=== PATIENT | female | born 1980 | race Caucasian/White ===

== ENCOUNTER → 2023-04-30 01:15 | Outpatient (CLI) | payer OTHER, SELFPAY ==
--- OUTSIDE RECORDS SUMMARY | 2023-04-26 13:03 | XMS_ITS | Continuity of Care Document ---
Author Name Unknown Organization [facility] Ambulatory Clinics Address [address] [place] [address] Care Team Providers Care Inseamer Name Role Phone Page Pat KATZ Primary Care Physician Encounter [facility] NBR [id number] Date(s): 04/02/23 - 04/02/23 [facility] [address] [place] [address]- [place] Discharge Disposition: Home Allergies, Adverse Reactions, Alerts Substance Reaction Severity Status penicillin internal itch Severe Active morphine chest pain/SOB Severe Active sulfa drugs GI Moderate Active Zofran Anaphylactic reaction Severe Active Toradol abd pain Moderate Active Latex itchy rash Moderate Active Assessment and Plan Future Scheduled Tests Radiology* MRI Brain w/o Contrast 01/30/23 Immunizations Given and Recorded Vaccine Date Status Refusal Reason influenza virus vaccine, inactivated 1 05/31/20 Re corded pneumococcal 23-polyvalent vaccine 2 01/13/18 Vicente rded 1Result Comment: Unit: Unknown Setup Operator: Sanofi Pasteur 2Result Comment: Unit: Unknown Medications CeleBREX 200 mg oral capsule 200 mg = 1 cap, Oral, Daily, 0 Refill(s) Start Date: 06/15/22 Status: Ordered colestipol 1 g oral tablet 180 tab, 0 Refill(s) Start Date: 06/15/22 Status: Ordered cyanocobalamin 3000 mcg/mL sublingual liquid 0 Refill(s) Start Date: 06/15/22 Status: Ordered Cytomel 5 mcg oral tablet 5 mcg = 1 tab, Oral, Daily, # 30 tab, 0 Refill(s) Start Date: 06/02/22 Status: Ordered FeroSul 325 mg (65 mg elemental iron) oral tablet 1 Unknown, 0 Refill(s) Start Date: 06/15/22 Status: Ordered Imodium A-D 0 Refill(s) Start Date: 06/15/22 Status: Ordered Plaquenil 200 mg oral tablet 200 mg = 1 tab, Oral, BID, 0 Refill(s) Start Date: 06/15/22 Status: Ordered Multivitamins 0 Refill(s) Start Date: 06/15/22 Status: Ordered Synthroid 175 mcg (0.175 mg) oral tablet 175 mcg = 1 tab, Oral, Daily, # 30 tab, 0 Refill(s) Start Date: 06/02/22 Status: Ordered Tylenol Extra Strength 500 mg oral tablet QID, 2 Unknown, 0 Refill(s) Start Date: 06/15/22 Status: Ordered Vitamin C 0 Refill(s) Start Date: 06/02/22 Status: Ordered Vitamin D3 5000 intl units oral tablet 0 Refill(s) Start Date: 06/15/22 Status: Ordered Voltaren 1% topical gel 0 Refill(s) Start Date: 06/15/22 Status: Ordered Wellbutrin XL 150 mg/24 hours oral tablet, extended release 150 mg = 1 tab, Oral, every 24 hr, 0 Refill(s) Start Date: 06/15/22 Status: Ordered Problem List Condition Confirmation Course Effective Dates Status H ealth Status Informant Memory loss Confirmed Active Anxiety Confirmed Active Asthma Confirmed Active Bursitis of left elbow Confirmed Active Cervical dysplasia, moderate 1 Confirmed Active Deficiency of vitamin B12 Confirmed Active Vitamin B 12 deficiency Confirmed Active Crohn's disease Confirmed Active Connective tissue disorder 2 Confirmed Active Diverticulitis Confirmed Active Cervical dysplasia Confirmed Active Dysuria Confirmed Active Endometriosis 3 Confirmed Active Infertility, female Confirmed Active Kristen's thyroiditis Confirmed Active H/O Crohn's disease Confirmed Active History of vulvodynia Confirmed Active Hypothyroidism Confirmed Active IgA deficiency Confirmed Active Anemia, iron deficiency Confirmed Active Renal calculus Confirmed Active Lupus Confirmed Active Migraine headache Confirmed Active Mittelschmerz Confirmed Active Polyarthralgia Confirmed Active Pulmonary nodule Confirmed Active Plantar fasciitis Confirmed Active Raynaud's disease Confirmed Active Recurrent UTI Confirmed Active Connective tissue disease, undifferentiated Confirmed Active Vertigo Confirmed Active 1Treated with LLETZ in 2002. 2Undifferentiated connective tissue disease. Diagnosed at [facility] [place]. LORI positive, ADA panel negative, intermittently elevated antidouble stranded DNA levels. 3Stage 2 Procedures Procedure Date Related Diagnosis Body Site Status Hysteroscopy 1 10/02/18 Completed Back surgery 03/2011 Completed Cholecystectomy 08/2008 Completed Back surgery 2 Completed Colonoscopy x2 Completed Laparoscopy x3 Completed LEEP (Loop electrosurgical e xcision procedure) of cervix x2 3 Comple chandu 1with D&C 2Fused 3for VICKY 2-3 (2002 and 2003) Social History Social History Type Response Tobacco Never tobacco user T obacco Use:. Sex Patient Care team information Care Team Personnel Name: Pat Grant APRN Position: Physician Member Role: Primary Care Physician Address: Address: [address] [place] [address]- Care Team Related Persons Name: DONNA CASTORENA Address: Home
--- OUTSIDE RECORDS SUMMARY | 2023-04-26 13:03 | XMS_ITS | Continuity of Care Document ---
Author Name Unknown Organization [facility] Address [address] [place] [id number] Care Team Providers Care Hardware Engineer Name Role Phone Page Pat KATZ Primary Care Physician Encounter [facility] NBR [id number] Date(s): 01/18/23 - 01/18/[address] [address]- [place] Discharge Disposition: Home or Self Care Attending Physician: Pat Grant APRN Admitting Physician: Pat Grant APRN Referring Physician: Pat Grant APRN Allergies, Adverse Reactions, Alerts Substance Reaction Severity Status penicillin internal itch Severe Active morphine chest pain/SOB Severe Active sulfa drugs GI Moderate Active Zofran Anaphylactic reaction Severe Active Toradol abd pain Moderate Active Latex itchy rash Moderate Active Assessment and Plan Future Appointments Future Scheduled Tests Radiology* MRI Brain w/o Contrast 01/30/23 Immunizations Given and Recorded Vaccine Date Status Refusal Reason influenza virus vaccine, inactivated 1 05/31/20 Re corded pneumococcal 23-polyvalent vaccine 2 01/13/18 Vicente rded 1Result Comment: Unit: Unknown Raker Buffing Wheel: Sanofi Pasteur 2Result Comment: Unit: Unknown Medications [...] 2002. 2Undifferentiated connective tissue disease. Diagnosed at [facility] [place]. LORI positive, ADA panel negative, intermittently [...] 2Fused 3for VICKY 2-3 (2002 and 2003) Results Laboratory List Name Date Thyroid Stimulating Hormone (Thyroid Sti mulating Hormone (TSH) (CPT-88748)) 01/18/23 Most recent to oldest [Reference Range]: 1 TSH [0.45-5.33 mIntlUnit/mL] 1.42 mIntlU nit/mL (01/18/23 11:29 AM) Social History Social History Type Response Tobacco Never tobacco user T obacco Use:. Sex Patient Care team information Care Team Personnel Name: Pat Grant APRN Position: Physician Member Role: Primary Care Physician Address: Address: [address] [place] [address] Care Team Related Persons Name: DONNA CASTORENA Address: Home
--- OUTSIDE RECORDS SUMMARY | 2023-04-26 13:04 | XMS_ITS | Continuity of Care Document ---
Author Name Unknown Organization [facility] Ambulatory Clinics Address [address] [place] [address] Encounter [facility] NBR [id number] Date(s): 06/02/22 - 06/02/22 [facility] Ambulatory [facility] [address] [place] [address] [place], [place] [address] Encounter Diagnosis Neck muscle spasm(Discharge Diagnosis) - 06/02/22 Headache(Discharge Diagnosis) - 06/02/22 Discharge Disposition: Home or Self Care Attending Physician: Tori Clarke PA-C Allergies, Adverse Reactions, Alerts Substance Reaction Severity Status penicillin Moderate Active Zofran Severe Active Toradol Severe Active Functional Status 06/02/22 Other exposure to Infectious Disease Non e Medications CeleBREX 100 mg oral capsule 100 mg = 1 cap, Oral, BID, # 180 cap, 0 Refill(s) Start Date: 06/02/22 Status: Ordered Cytomel 5 mcg oral tablet 5 mcg = 1 tab, Oral, Daily, # 30 tab, 0 Refill(s) Start Date: 06/02/22 Status: Ordered norethindrone 5 mg oral tablet 5 mg = 1 tab, Oral, Daily, # 30 tab, 0 Refill(s) Start Date: 06/02/22 Status: Ordered Plaquenil 200 mg oral tablet 0 Refill(s) Start Date: 06/02/22 Status: Ordered predniSONE 10 mg oral tablet 40 mg = 4 tab, Oral, Daily, Take with food, X 5 days, # 20 tab, 0 Refill(s), 06/07/22 13:27:00 EDT,Pharmacy: [id number] Start Date: 06/02/22 Stop Date: 06/07/22 Status: Ordered Synthroid 175 mcg (0.175 mg) oral tablet 175 mcg = 1 tab, Oral, Daily, # 30 tab, 0 Refill(s) Start Date: 06/02/22 Status: Ordered Vitamin C 0 Refill(s) Start Date: 06/02/22 Status: Ordered Wellbutrin SR 150 mg/12 hours oral tablet, extended release 150 mg = 1 tab, Oral, BID, # 180 tab, 0 Refill(s) Start Date: 06/02/22 Status: Ordered Results Laboratory List Name Date SARS-CoV-2 (COVID-19) Antigen (Binax) PO CT 06/02/22 Most recent to oldest [Reference Range]: 1 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 Yes *NA* (06/02/22 10:00 AM) SARS-CoV-2 (COVID-19) Ag (Binax) [Negati ve] Negative (06/02/22 10:00 AM) Vital Signs Most recent to oldest [Reference Range]: 1 Temperature Tympanic [36.6-37.9 Deg C] 3 7.4 Deg C (06/02/22 12:45 PM) Peripheral Pulse Rate [60-100 bpm] 73 bp m (06/02/22 12:45 PM) Blood Pressure [90-140/60-90 mmHg] 134/9 1mmHg (06/02/22 12:45 PM) Social History Social History Type Response Tobacco Never tobacco user T obacco Use:. Sex
--- OUTSIDE RECORDS SUMMARY | 2023-04-26 13:04 | XMS_ITS | Continuity of Care Document ---
Author Name Unknown Organization [facility] Ambulatory Clinics Address [address] [place] [address] Care Team Providers Care Plain Clothes Police Officer Name Role Phone Page Pat KATZ Primary Care Physician [phone] Encounter [facility] NBR [id number] Date(s): 04/18/23 - 04/18/23 [facility] Ambulatory Clin[facility] [address] [place] [address]- [place] Encounter Diagnosis Extensor tendonitis of foot(Discharge Diagnosis) - 04/18/23 Discharge Disposition: Home or Self Care Attending Physician: Gena Palafox PA-C Admitting Physician: Gena Palafox PA-C Allergies, Adverse Reactions, Alerts Substance Reaction [...] 01/13/18 Vicente rded 1Result Comment: Unit: Unknown Slip Cover Estimator: Sanofi Pasteur 2Result Comment: Unit: Unknown Medications [...] 2002. 2Undifferentiated connective tissue disease. [place] [facility] [place]. LORI positive, ADA panel negative, intermittently [...] 2Fused 3for VICKY 2-3 (2002 and 2003) Vital Signs Most recent to oldest [Reference Range]: 1 Temperature Tympanic [36.6-37.9 Deg C] 3 6.4 Deg C *LOW* (04/18/23 4:57 PM) Peripheral Pulse Rate [60-100 bpm] 70 bp m (04/18/23 4:57 PM) Respiratory Rate [12-24 br/min] 18 br/mi n (04/18/23 4:57 PM) Blood Pressure [90-140/60-90 mmHg] 141/9 4mmHg *HI* (04/18/23 4:57 PM) Weight 96 kg (04/18/23 4:57 PM) Weight Measured (lbs) 211.644 lb (04/18/23 4:57 PM) Height 177 cm (04/18/23 4:57 PM) Height/Length Measured (inches) 69.69 in ch (04/18/23 4:57 PM) BSA Measured 2.17 m2 (04/18/23 4:57 PM) Body Mass Index 30.64 kg/m2 (04/18/23 4:57 PM) Social History Social History Type Response Tobacco Never tobacco user T obacco Use:. Sex Hospital Discharge Instructions Patient Education 04/18/2023 16:13:06 Tendinitis, [id number] Tendinitis Tendinitis is irritation and swelling (inflammation) of a tendon. A tendon is a cord of tissue thatconnects muscle to bone. Tendinitis is most common in the shoulder, ankle, elbow, or wrist. What are the causes? Using a tendon or muscle too much (overuse). This is the most common cause. ??? Wear and tear that happens as you age. ??? Injury. ??? Some medical conditions, such as arthritis. ??? Some medicines. What increases the risk? You are more likely to get this condition if you do activities that involve the same movements overand over again (repetitive motions). What are the signs or symptoms? Pain. ??? Tenderness. ??? Mild swelling. ??? Decreased range of motion. How is this treated? This condition is usually treated with RICE therapy. RICE stands for: ??? Rest. ??? Ice. ??? Compression. This means putting pressure on the affected area. ??? Elevation. This means raising the affected area above the level of your heart. Treatment may also include: ??? Medicines for swelling or pain. ??? Exercises or physical therapy to help your tendon move better and get stronger. ??? A brace or splint. ??? A shot (injection) of a type of medicine called corticosteroid. ??? Surgery. This is rarely needed. Follow these instructions at home: If you have a splint or brace that can be taken off: ??? Wear the splint or brace as told by your doctor. Take it off only as told by your doctor. ??? Check the skin around the splint or brace every day. Tell your doctor if you see problems. ??? Loosen the splint or brace if your fingers or toes: ??? Tingle. ??? Become numb. ??? Turn cold and blue. ??? Keep the splint or brace clean. ??? If the splint or brace is not waterproof: ??? Do not let it get wet. ??? Cover it with a watertight covering when you take a bath or shower, or take it off as told by your doctor. Managing pain, stiffness, and swelling ??? If told, put ice on the affected area. To do this: ??? If you have a removable splint or brace, take it off as told by your doctor. ??? Put ice in a plastic bag. ??? Place a towel between your skin and the bag. ??? Leave the ice on for 20 minutes, 2???3 times a day. ??? Take off the ice if your skin turns bright red. This is very important. If you cannot feel pain, heat, or cold, you have a greater risk of damage to the area. ??? Move the fingers or toes of the affected arm or leg often, if this applies. ??? If told, raise the affected area above the level of your heart while you are sitting or lying down. ??? If told, put heat on the affected area before you exercise. Use the heat source that your doctor recommends, such as a moist heat pack or a heating pad. ??? Place a towel between your skin and the heat source. ??? Leave the heat on for 20???30 minutes. ??? Take off the heat if your skin turns bright red. This is very important. If you cannot feel pain, heat, or cold, you have a greater risk of getting burned. Activity ??? Rest the affected area as told by your doctor. ??? Ask your doctor when it is safe to drive if you have a splint or brace on any part of your arm or leg. ??? Return to your normal activities when your doctor says that it is safe. ??? Avoid using the affected area while you have symptoms. ??? Do exercises as told by your doctor. General instructions ??? Wear an elastic bandage or pressure (compression) wrap only as told by your doctor. ??? Take [id number] and prescription medicines only as told by your doctor. ??? Keep all follow-up visits. Contact a doctor if: ??? You do not get better. ??? You get new problems, such as numbness in your hands or feet, and you do not know why. Summary ??? Tendinitis is irritation and swelling (inflammation) of a tendon. ??? You are more likely to get this condition if you do activities that involve the same movements over and over again. ??? This condition is usually treated with RICE therapy. RICE stands for rest, ice, compression, and elevate. ??? Avoid using the affected area while you have symptoms. This information is not intended to replace advice given to you by your health care provider. Make sure you discuss any questions you have with your health care provider. Document Revised: 04/19/2022 Document Reviewed: 04/19/2022 [employer] Patient Education ?? 2022 [employer] Physician Outpatient Note * Gena Palafox PA-C: PERFORM Event Display: Office Clinic Note Physician Authored Date: [id number] MELANIE CASTORENA DOB:1980 Age:42 years Sex:Female Visit Date:04/18/2023 Primary Care Physician: Pat Grant APRN Chief Complaint Pt complains of L foot pain that is on the top of foot. pt states pain started 3 weeks ago History of Present Illness Is a 42-year-old female who presents for evaluation of left??foot pain. ??She reports that she has had pain on the top of her left foot for??the past 3 weeks.?? 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 Her foot??is in pain whenever she ties her shoes, stands on her toes.?? She has??developed??pain with simple ambulation. ??She denies any provoking injury or incident. ??She denies numbness or tingling. Physical Exam Vitals & Measurements T:??36.4?C ??(Tympanic)?? HR:??70??(Peripheral)?? RR:??18?? BP:??141/94?? SpO2:??100%?? HT:??177??cm?? WT:??96??kg?? BMI:??30.64?? Pain Score:??5?? BSA:??2.17?? General: Alert and oriented x3, no acute distress, well-nourished and hydrated Extremities: Examination of left foot reveals??mild swelling??on the??proximal dorsum of the foot, there is tenderness to palpation along??the extensor tendons and tendon sheath.?? There is pain??with??plantarflexion. ??There is no bony tenderness??in calcaneum, metatarsals,??malleoli.?? ATFL, CFL,PTFL are nontender Assessment/Plan 1.??Extensor tendonitis of foot??M77.8 Patient presenting with signs and symptoms of extensor tendinitis of her foot. ??Discussed this is most often related to??overuse,??tight calf muscles,??foot wear.?? We discussed the importance of??firm, supportive footwear. ??She was given a handout??for??exercises and stretches she can perform athome.?? We discussed rest from aggravating activities.?? She is hoping for referral to podiatry andorthopedics, this was placed today.?? I encouraged follow-up as needed for any new or worsening symptoms Patient Instructions I provided you with a handout for exercises that will help with the extensor tendinitis of your foot.?? We discussed proper footwear??and foot support.?? I will place a referral to podiatry. ??Follow-up as needed for any worsening symptoms Referral Orders Referral Management, Medical Service: Orthopedics, Reason: Extensor tendinitis of left foot, Achilles tendinitis of right ankle, Start: 04/19/23 Referral Management, Medical Service: Podiatry, Reason: Extensor tendonitis of left foot, Start:04/19/23 Patient Education Tendinitis, [id number] Problem List/Past Medical History Ongoing Anemia, iron deficiency Anxiety Asthma Bursitis of left elbow Cervical dysplasia Cervical dysplasia, moderate Connective tissue disease, undifferentiated Connective tissue disorder Crohn's disease Deficiency of vitamin B12 Diverticulitis Dysuria Endometriosis H/O Crohn's disease Kristen's thyroiditis History of vulvodynia Hypothyroidism IgA deficiency Infertility, female Lupus Memory loss Migraine headache Mittelschmerz Plantar fasciitis Polyarthralgia Pulmonary nodule Raynaud's disease Recurrent UTI Renal calculus Vertigo Vitamin B 12 deficiency Historical No qualifying data Procedure/Surgical History ???Hysteroscopy (10/03/2018)???Back surgery (03/2011)???Cholecystectomy (08/2008)???Back surgery???Colonoscopy x2???Laparoscopy x3???LEEP (Loop electrosurgical excision procedure) of cervix x2 Medications CeleBREX 200 mg oral capsule, 200 mg= 1 cap, Oral, Daily colestipol 1 g oral tablet cyanocobalamin 3000 mcg/mL sublingual liquid Cytomel 5 mcg oral tablet, 5 mcg= 1 tab, Oral, Daily FeroSul 325 mg (65 mg elemental iron) oral tablet Imodium A-D Plaquenil 200 mg oral tablet, 200 mg= 1 tab, Oral, BID Multivitamins Synthroid 175 mcg (0.175 mg) oral tablet, 175 mcg= 1 tab, Oral, Daily Tylenol Extra Strength 500 mg oral tablet, QID Vitamin C Vitamin D3 5000 intl units oral tablet Voltaren 1% topical gel Wellbutrin XL 150 mg/24 hours oral tablet, extended release, 150 mg= 1 tab, Oral, every 24 hr Allergies Zofran??(Anaphylactic reaction) morphine??(chest pain/SOB) penicillin??(internal itch) Latex??(itchy rash) Toradol??(abd pain) sulfa drugs??(GI) Social History Alcohol Never Electronic Cigarette/Vaping Electronic Cigarette Use: Never. Substance Use Never Tobacco Never tobacco user Tobacco Use:. Family History Cancer: Grandfather (P) and Grandmother (P). Heart disease: Grandfather (P). Hypertension: Father. Other: Mother, Father, Sister and Brother. Stroke: Father. Thyroid disease: Sister and Grandmother (P). Family Member(s): ?? GPARENT, at age: Unknown. Cause of : Family Member(s): ?? GPARENT, at age: Unknown. Cause of : Family Member(s): ?? GPARENT, at age: Unknown. Cause of : Family Member(s): ?? GPARENT, at age: Unknown. Cause of : Immunizations Vaccine Date Status influenza virus vaccine, inactivated 05/31/2020 Recorded Comments : Unit: Unknown Slip Cover Estimator: Sanofi Pasteur pneumococcal 23-polyvalent vaccine 01/13/2018 Recorded Comments : Unit: Unknown Electronically Signed on 04/19/23 09:02 AM Gena Palafox PA-C Patient Care team information Care Team Personnel Name: Pat Grant APRN Position: Physician Member Role: Primary Care Physician Address: Address: [address] [place] [phone]- Care Team Related Persons Name: DONNA CASTORENA Address: Home
--- OUTSIDE RECORDS SUMMARY | 2023-04-26 13:04 | XMS_ITS | Continuity of Care Document ---
Author Name Unknown Organization [facility] Ambulatory Clinics Address [address] [place] [address] Care Team Providers Care Mounter Saxophones Name Role Phone Page Pat KATZ Primary Care Physician Encounter [facility] NBR [id number] Date(s): 04/22/23 - 04/22/23 [facility] Ambulatory Clinics [address] [place] [address]- [place] Discharge Disposition: Home Allergies, [...] 01/13/18 Vicente rded 1Result Comment: Unit: Unknown Pocketbook Maker: Sanofi Pasteur 2Result Comment: Unit: Unknown Medications [...] 2002. 2Undifferentiated connective tissue disease. Diagnosed at [facility] [place] 2015. LORI positive, ADA panel [...] Care team information Care Team Personnel Name: Pta Grant APRN Position: Physician Member Role: Primary Care Physician Address: Address: [address] [place] [address]- Care Team Related Persons Name: DONNA CASTORENA Address: Home
--- OUTSIDE RECORDS SUMMARY | 2023-04-26 13:04 | XMS_ITS | Continuity of Care Document ---
Author Name Unknown Organization [facility] Ambulatory Clinics Address [address] [place] [address] Care Team Providers Care Tong Setter Name Role Phone Page Pat KATZ Primary Care Physician Encounter [facility] NBR [id number] Date(s): 01/08/23 - 01/08/23 [facility] Ambulatory Clinics [address] [place] [address] [place] Discharge Disposition: Home Allergies, Adverse Reactions, Alerts Substance Reaction Severity Status penicillin internal itch Severe Active morphine chest pain/SOB Severe Active sulfa drugs GI Moderate Active Zofran Anaphylactic reaction Severe Active Toradol abd pain Moderate Active Latex itchy rash Moderate Active Assessment and Plan Future Appointments Future Scheduled Tests Radiology* MRI Brain w/o Contrast 01/07/23 * MG Mammo Screening Bilateral 01/17/23 Immunizations Given and Recorded Vaccine Date Status Refusal Reason influenza virus vaccine, inactivated 1 05/31/20 Re corded pneumococcal 23-polyvalent vaccine 2 01/13/18 Vicente rded 1Result Comment: Unit: Unknown Infection Preventionist: Sanofi Pasteur 2Result Comment: Unit: Unknown Medications [...] 2002. 2Undifferentiated connective tissue disease. [place] [facility] [place]. LORI positive, ADA panel negative, intermittently [...] Member Role: Primary Care Physician Address: Address: [address] [place] [id number]
--- OUTSIDE RECORDS SUMMARY | 2023-04-26 13:04 | XMS_ITS | Continuity of Care Document ---
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 Name Role Phone Page Pat KATZ Primary Care Physician Encounter LTTL_MS FIN NBR [id number] Date(s): 01/17/23 - 01/17/[address] [address]- [place] Encounter Diagnosis Encounter for screening mammogram for malignant neoplasm of breast(Final) - Discharge Disposition: Home or Self Care Attending Physician: FARSHAD HOFFMAN Admitting Physician: FRASHAD HOFFMAN Referring Physician: Farshad Hoffman DO Allergies, Adverse Reactions, Alerts Substance Reaction Severity [...] 01/13/18 Vicente rded 1Result Comment: Unit: Unknown Analysis Tester: Sanofi Pasteur 2Result Comment: Unit: Unknown Medications [...] 2002. 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 LORI positive, ADA panel negative, intermittently [...] 3for VICKY 2-3 (2002 and 2003) Results Radiology Reports * Exam Date Time Procedure Performing Provider Status 01/17/23 4:06 PM MG Mammo Screening Bilateral Guevara Sultana; Auth (Verified) Notes: (MG Mammo Screening Bilateral) Reason For Exam: Z12.-Encounter for screening mammogram for malignant neoplasm of breast;Z12.31-Encounter for screening mammogram for malignant neoplasm of breast MG Mammo Screening Bilateral EXAM DESCRIPTION: MG Mammo Screening Bilateral 01/17/2023 INDICATION: Z12.31-ENCOUNTER FOR SCREENING MAMMOGRAM FOR MALIGNANT NEOPLASM OF BREAST COMPARISON: None available BREAST DENSITY: The breasts are heterogeneously dense which may obscure small masses. FINDINGS: MLO and CC views were performed with digital breast tomosynthesis. Images were reviewed using computer aided detection. No asymmetry, architectural distortion or suspicious grouping of calcifications to suggest malignancy in either breast. ASSESSMENT: No mammographic evidence of malignancy. Negative. BI-RADS category 1. RECOMMENDATION: Screening mammography in 1 year JOB #: [id number] Final Signed by: Gideon Gifford MD Signed (Electronic Signature): 01/17/2023 4:14 pm Social History Social History Type Response Tobacco Never tobacco user T obacco Use:. Sex MG Breast - bilateral Screening * Gideon Gifford MD: VERIFY, VERIFY Event Display: Report EXAM DESCRIPTION: MG Mammo Screening Bilateral 01/17/2023 INDICATION: Z12.31-ENCOUNTER FOR SCREENING MAMMOGRAM FOR MALIGNANT NEOPLASM OF BREAST COMPARISON: None available BREAST DENSITY: The breasts are heterogeneously dense which may obscure small masses. FINDINGS: MLO and CC views were performed with digital breast tomosynthesis. Images were reviewed using computer aided detection. No asymmetry, architectural distortion or suspicious grouping of calcifications to suggest malignancy in either breast. ASSESSMENT: No mammographic evidence of malignancy. Negative. BI-RADS category 1. RECOMMENDATION: Screening mammography in 1 year JOB #: [id number] Final Signed by: Gideon Gifford MD Signed (Electronic Signature): 01/17/2023 4:14 pm Patient Care team information Care Team Personnel Name: Pat Grant APRN Position: Physician Member Role: Primary Care Physician Address: Address: [address] [place] [address] Care Team Related Persons Name: DONNA CASTORENA Address: Home
--- OUTSIDE RECORDS SUMMARY | 2023-04-26 13:08 | XMS_ITS | Patient Health Record ---
Author Name Unknown [facility] Address [address] [place] [address] Support Name Relationship Address Phone TERESA CASTORENA Emergency Contact [address] [place] [address] MELANIE CASTORENA Guarantor Unknown [phone] ALLERGIES Allergen (clinical drug ingredient) Drug/Non Drug Allergy documented on EMR Reaction Allergy Type Onset Date Status Latex latex (uncoded) skin irriatation Allergy Active Penicillin (uncoded) Itch Allergy Active ketorolac Toradol (uncoded) abdominal pain Allergy Active morphine Morphine Sulfate Unknown Drug Allergy Active Zofran anaphalatic Drug Allergy Activ e REASON FOR REFERRAL No Information MEDICATIONS Medication SIG (Take, Route, Frequency, Duration) Notes Start Date End Date Status MULTIVITAMINS Multivitamins with Folic Acid 0.4 mg 1 tab(s) orally once a day for 30 day(s) STOP*please review for potential _update for e-prescription and drug interaction check* Active VOLTAREN TOPICAL 1% 0 applied topically PRN for knee pain STOP*please review for potential _update for e-prescription and drug interaction check* Active predniSONE 20 MG 1 tablet Orally Once a day for 5 days 10/08/2018 Active CYCLOBENZAPRINE 5 mg 1 tab(s) orally 3 times a day STOP*please review for potential _update for e-prescription and drug interaction check* Active Synthroid 50 mcg (0.05 mg) 1 tab(s) orally once a day Active EpiPen 2-Juan 0.3 mg 0.3 mg intramuscularly once for 1 dose(s) 04/08/2012 Active PLAQUENIL SULFATE 200 mg 2 tabs orally once a day for 90 days STOP*please review for potential _update for e-prescription and drug interaction check* 07/07/2013 Active IMMUNIZATIONS Vaccine Route Administration Date Status Comme nts Tdap HISTORY Unknown 01/13/2019 Administered Tdap adacel or Boostrix NONSTATE Adults IM Intramuscular 06/30/2013 Administered Influenza HISTORY Unknown 05/21/2014 Administered given by [facility] Influenza HISTORY IM Intramuscular 05/15/2015 Administered given at [facility] -Influenza FLUZONE NONSTATE 3+yrs preser free IM Intramuscular 06/30/2013 Administered -Influenza FLUZONE NON STATE ID ages 18-64 ID Intradermal 05/23/2012 Administered SOCIAL HISTORY Tobacco Use: Social History Observation Description Date Smoking Status WARNING: Information temporarily unavailable Sex Assigned At : Social History Observation Description Sex Assigned At Unknown SMOKING Question Answer Notes Are you a: nonsmoker Tobacco use other than smoking: Question Answer Notes Additional Findings: Tobacco User No DRUG SCREENING Question Answer Notes Have you used drugs other th an those for medical reasons in the past 12 months? No PROBLEMS Problem Type ICD Code Onset Dates Problem Status W/U Status Risk SNOMED Code Notes Problem Back pain (M54.9) Active confirmed Back pain (610331920) Problem Asthma (J45.909) Active confirmed Asthm a (816171893) Problem GERD (gastroesophagea l reflux disease) (K21.9) Active confirmed Gastroesoph ageal reflux disease (999850547) Problem Endometriosis (N80.9) Active confirmed Endometriosis (125829128) Problem Rhinitis (J31.0) Active confirmed Rhini tis (78166415) Problem Crohns disease (K50.90) Active confirmed Crohns disease (25357869) Problem Lupus (M32.9) Active confirmed Lupus (2 18783093) PLAN OF TREATMENT No Information Insurance Providers Payer Name Payer Address Payer Phone Subscriber Number Group Number Insured Name Patient Relationship to Insured Coverage Start Date Coverage End Date [employer] [address] [place], [place] [id number] MELANIE CASTORENA Self - patient is the insured [facility] PLANS [facility] [address] [place] [address] [id number] MELANIE CASTORENA Self - patient [place] [address] MELANIE CASTORENA Self - patient is the insured MEDICAL (GENERAL) HISTORY Medical History History ICD Code CONTROLLED SUBSTANCE AGREEMENT SIGNED [facility] DR. CANSECO ON 12/14/2014- Crohns Disease Lupus Endometriosis Asthma (Mild) Surgical History Surgery Date(Month/Year) Back Surgery 03/20112011-08-07 & 15 laproscopic surg for endometrosis x3 gallbladder removal colonoscopy 05/2008 & 2013 Hospitalization History Reason Date(Month/Year)
--- NOTE | 2023-04-30 13:13 | DI.RAD_ITS ---
Exam(s) XR FOOT RT COMPLETE EXAM: XR FOOT RT COMPLETE CLINICAL HISTORY: Fracture non union 5TH MT BONE RT FOOT, S92.351A. TECHNIQUE: 2D digital imaging was performed. COMPARISON: CR Foot Right Complete 3 Views from 03/28/2023 CR XR FOOT LT COMPLETE from 04/30/2023 FINDINGS: 3 views Again noted is a fracture of the base of the 5th metatarsal with mild displacement, unchanged from ou tside images of 03/28/2023, 1 month ago. No diastasis of the Lisfranc joint. 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 DATA REPOSITORY: RADIATION DOSE DELIVERED:
--- NOTE | 2023-04-30 15:00 | DI.RAD_ITS ---
Exam(s) XR FOOT LT COMPLETE EXAM: XR FOOT LT COMPLETE CLINICAL HISTORY: Left foot pain, SPRAIN TARSOMETATARSAL JOINT LT FOOT, S93.052A. TECHNIQUE: 2D digital imaging was performed. COMPARISON: CR XR FOOT RT COMPLETE from 04/30/2023 FINDINGS: 3 views No evidence of acute fracture or diastasis of the Lisfranc joint. Bone density normal. No osseous l esions nor erosions. No radiopaque foreign body. IMPRESSION: No acute osseous findings. DATA REPOSITORY: RADIATION DOSE DELIVERED:
--- NOTE | 2023-04-30 15:00 | DI.RAD_ITS ---
Exam(s) XR ANKLE RT COMPLETE EXAM: XR ANKLE RT COMPLETE CLINICAL HISTORY: Tibia lesion, PAIN RT ANKLE, M25.571. TECHNIQUE: 2D digital imaging was performed. COMPARISON: No exams were available for comparison FINDINGS: 3 views No evidence of acute fracture or widening of the ankle mortise. Talar dome is unremarkable. There i s a bony excrescence off the medial aspect of the metadiaphysis of the distal fibula which a an exhib its pseudoarticulation with the adjacent tibia at this level. No overlying soft tissue swelling. No osseous lesions. No erosions. No evidence of osseous tarsal coalition. IMPRESSION: Incidental finding of the lower fibula as above but no fracture nor widening of the ankle mortise. DATA REPOSITORY: RADIATION DOSE DELIVERED:
== END ==
PROVIDERS: PCP Nurse Practitioner Family; Visit Provider Podiatrist
DX: S92.351D Displaced fracture of fifth metatarsal bone, right foot, subsequent encounter for fracture with routine healing (principal); X58.XXXD Exposure to other specified factors, subsequent encounter
CPT/HCPCS: 73610; 73630

== ENCOUNTER → 2023-06-06 00:41 | Outpatient (CLI) | payer OTHER, SELFPAY ==
--- OUTSIDE RECORDS SUMMARY | 2023-06-06 00:47 | XMS_ITS | Patient Health Record ---
Author Name Unknown [facility] Address [address] [place] [address] Support Name Relationship Address Phone TERESA CASTORENA Emergency Contact [address] [facility] [place] [address] MELANIE CASTORENA Guarantor Unknown [phone] ALLERGIES Allergen (clinical drug ingredient) Drug/Non Drug [...] Back pain (M54.9) Active confirmed Back pain (160409628) Problem Asthma (J45.909) Active confirmed Asthm a (189894283) Problem GERD (gastroesophagea l reflux disease) (K21.9) Active confirmed Gastroesoph ageal reflux disease (861340086) Problem Endometriosis (N80.9) Active confirmed Endometriosis (103424175) Problem Rhinitis (J31.0) Active confirmed Rhini tis (71342072) Problem Crohns disease (K50.90) Active confirmed Crohns disease (55169761) Problem Lupus (M32.9) Active confirmed Lupus (2 99928272) PLAN OF TREATMENT No Information Insurance Providers Payer Name Payer Address Payer Phone Subscriber Number Group Number Insured Name Patient Relationship to Insured Coverage Start Date Coverage End Date [employer] [address] [place], [place] [id number] MELANIE CASTORENA Self - patient is the insured HEALTH PLANS [facility] [address] [place] [address] [id number] MELANIE CASTORENA Self - patient is the insured [place] [address] MELANIE CASTORENA Self - patient is the insured MEDICAL (GENERAL) HISTORY Medical History History ICD Code CONTROLLED SUBSTANCE AGREEMENT SIGNED [facility] DR. CANSECO ON 12/14/2014- Crohns Disease Lupus Endometriosis Asthma (Mild) Surgical History Surgery Date(Month/Year) Back Surgery 03/20112011-08-07 & laproscopic surg for endometrosis x3 gallbladder removal colonoscopy 05/2008 & 2013 Hospitalization History Reason Date(Month/Year)
--- NOTE | 2023-06-06 06:02 | DI.MRI_ITS ---
Exam(s) MR LOWER EXTREMITY LT WO EXAM: MR LOWER EXTREMITY LT WO CLINICAL HISTORY: Midfoot pain,sprain tarsometatarsal joint lt foot, s93.523t. TECHNIQUE: Multiplanar multisequence MRI was performed. COMPARISON: CR XR ANKLE RT COMPLETE from 04/30/2023 CR XR FOOT LT COMPLETE from 04/30/2023 FINDINGS: BONES/JOINTS: No evidence of fracture. There is marrow edema seen in the cuneiforms, the navicular, t he cuboid and the proximal 4th and 5th metatarsal bones. No joint space narrowing identified. No na nt effusion identified. LIGAMENTS: The Lisfranc ligaments are unremarkable. MUSCULOTENDINOUS STRUCTURES: Visualized portion of the planar fascia is unremarkable. The visualized intrinsic muscles and tendons of the foot are unremarkable. SOFT TISSUES: There is edema seen in the soft tissues of the midfoot. No focal fluid collection is i dentified. OTHER FINDINGS: None. IMPRESSION: 1. Marrow edema seen in the cuneiforms, navicular, cuboid and proximal 4th and 5th metatarsals but no fracture is seen. 2. Mild edema in the soft tissues of the foot but no focal fluid collection is identified. DATA REPOSITORY:
== END ==
PROVIDERS: PCP Nurse Practitioner Adult Health; Visit Provider Podiatrist
DX: M89.8X7 Other specified disorders of bone, ankle and foot (principal); M79.672 Pain in left foot
CPT/HCPCS: 73718

== ENCOUNTER 2023-06-11 17:35 | Outpatient (CLI) | payer OTHER, SELFPAY ==
[2023-06-11 16:40] LABS: Abs Immature Grans 0.02 10^3/uL (0.0-0.06); Absolute Basophil Count 0.05 10^3/uL (0.0-0.2); Absolute Eosinophil Count 0.17 10^3/uL (0.0-0.7); Absolute Monocyte Count 0.65 10^3/uL (0.1-0.8); Absolute Neutrophil Count 3.91 10^3/uL (1.2-6.7); Basophils % 0.8; Eosinophils % 2.6; HCT 37.2 % (36.0-46.0); HGB 12.5 g/dL (11.2-15.7); Immature Grans % 0.3; Lymphocytes % 26.2; MCHC 33.6 % (32.0-36.0); MCV 92 fL (80-95); MPV 9.9 fL (8.0-11.0); Neutrophils % 60.1; Platelet Count 185 10^3/uL (130-400); RBC 4.03 10^6/uL (3.93-5.22); RDW 12.3 % (11.7-14.6); RDW-SD 42.4 fL
[2023-06-11 17:39] LABS: Iron 49 ug/dL (50-170); Total Iron Binding Capacity 237 ug/dL (250-450)
--- OUTSIDE RECORDS SUMMARY | 2023-06-11 17:41 | XMS_ITS | Patient Health Record ---
Author Name Unknown [facility] Address [address] [place] [address] Support Name Relationship Address Phone TERESA CASTORENA Emergency Contact [address] [facility] [address] MELANIE CASTORENA Guarantor Unknown ALLERGIES Allergen (clinical drug ingredient) Drug/Non Drug [...] Back pain (M54.9) Active confirmed Back pain (807470878) Problem Asthma (J45.909) Active confirmed Asthm a (435350271) Problem GERD (gastroesophagea l reflux disease) (K21.9) Active confirmed Gastroesoph ageal reflux disease (241118935) Problem Endometriosis (N80.9) Active confirmed Endometriosis (996955521) Problem Rhinitis (J31.0) Active confirmed Rhini tis (59321381) Problem Crohns disease (K50.90) Active confirmed Crohns disease (16522791) Problem Lupus (M32.9) Active confirmed Lupus (2 81000702) PLAN OF TREATMENT No Information Insurance Providers Payer Name Payer Address Payer Phone Subscriber Number Group Number Insured Name Patient Relationship to Insured Coverage Start Date Coverage End Date [employer] [address] [place], [place] [id number] MELANIE CASTORENA Self - patient is the insured HEALTH PLANS [facility] [address] [place] [address] [id number] MELANIE CASTORENA Self - patient is the insured [place] [address] MELANIE CASTORENA Self - patient is the insured MEDICAL (GENERAL) HISTORY Medical History History ICD Code CONTROLLED SUBSTANCE AGREEMENT SIGNED [facility] DR. CANSECO ON 12/14/2014- Crohns Disease Lupus Endometriosis Asthma (Mild) Surgical History Surgery Date(Month/Year) Back Surgery 03/20112011-08-07 & laproscopic surg for endometrosis x3 gallbladder removal colonoscopy 05/2008 & 2013 Hospitalization History Reason Date(Month/Year)
[2023-06-11 18:14] LABS: ALT 19 U/L (14-59); AST 16 U/L (15-37); Albumin 3.7 g/dL (3.4-5.0); Alkaline Phosphatase 65 U/L (46-116); Anion Gap 8.1 mmol/L (3-11); BUN 10 mg/dL (7-18); Bilirubin, Total 0.3 mg/dL (0.2-1.0); CO2 26.9 mmol/L (21.0-32.0); CREATININE 0.9 mg/dL (0.55-1.02); Calcium 8.8 mg/dL (8.5-10.1); Chloride 104 mmol/L (98-107); Estimated GFR 81.35 (mL/min/1.73m2); Ferritin 100 ng/mL (8-252); Glucose 112 mg/dL (74-106); Potassium 3.7 mmol/L (3.5-5.1); Sodium 139 mmol/L (136-145); TSH 15.87 uIU/mL (0.36-3.74); Total Protein 6.9 g/dL (6.4-8.2); Vitamin B12 1224 pg/mL (193-986)
[2023-06-11 18:15] LABS: Folate > 20.0 ng/mL (8.6-20.0)
[2023-06-11 18:33] LABS: FREE T4 0.95 ng/dL (0.76-1.46)
[2023-06-12 19:25] LABS: T3, Total 114 ng/dL (97-169)
[2023-06-13 08:44] LABS: Calculated LDL 102 mg/dL (<100); Cholesterol 186 mg/dL (<200); HDL Cholesterol 62 mg/dL (40-60); Triglyceride 111 mg/dL (<150)
== END 2023-06-11 17:36 | disposition home or self-care (01) ==
LOC: LBO 17:35
PROVIDERS: PCP Nurse Practitioner Adult Health; Visit Provider Nurse Practitioner Adult Health
DX: D50.9 Iron deficiency anemia, unspecified (principal); E03.9 Hypothyroidism, unspecified; R53.83 Other fatigue; Z13.1 Encounter for screening for diabetes mellitus; Z13.220 Encounter for screening for lipoid disorders; E06.3 Autoimmune thyroiditis
CPT/HCPCS: 36415; 80053; 80061; 82607; 82728; 82746; 83540; 83550; 84439; 84443; 84480; 85025

== ENCOUNTER → 2023-06-25 14:16 | Outpatient (CLI) | payer OTHER, SELFPAY ==
--- NOTE | 2023-06-25 12:30 | DI.RAD_ITS ---
Exam(s) XR FOOT RT COMPLETE EXAM: XR FOOT RT COMPLETE CLINICAL HISTORY: Pain in right footS92.351K FX 5TH TOE RT FOOT. TECHNIQUE: 2D digital imaging was performed of the right foot. Three images were obtained. AP, obl ique and lateral views were obtained. COMPARISON: CR XR FOOT RT COMPLETE from 04/30/2023 CR XR ANKLE RT COMPLETE from 04/30/2023 FINDINGS: BONES: No acute fracture is present. No bony destructive lesion is seen. There has been no change of the old nonunited fracture of the base of the 5th metatarsal bone. The bony protuberance from the di stal fibula is unchanged. JOINTS: No dislocation present. The joint spaces are well maintained. SOFT TISSUE: Normal. IMPRESSION: No acute abnormality. DATA REPOSITORY: RADIATION DOSE DELIVERED:
--- NOTE | 2023-06-25 12:30 | DI.RAD_ITS ---
Exam(s) XR FOOT LT COMPLETE EXAM: XR FOOT LT COMPLETE CLINICAL HISTORY: Pain in left foot M79.672. TECHNIQUE: 2D digital imaging was performed of the left foot. Three images were obtained. AP, obli que and lateral views were obtained. COMPARISON: CR XR FOOT LT COMPLETE from 04/30/2023 FINDINGS: BONES: No acute fracture is present. No bony destructive lesion is seen. JOINTS: No dislocation present. There is again seen flexion of the DIP joint of the 5th toe. The na nt spaces are otherwise well maintained. SOFT TISSUE: Normal. IMPRESSION: No acute abnormality. DATA REPOSITORY: RADIATION DOSE DELIVERED:
--- OUTSIDE RECORDS SUMMARY | 2023-06-25 14:22 | XMS_ITS | Patient Health Record ---
Author Name Unknown [facility] Address [address] [place] [address] Support Name Relationship Address Phone TERESA CASTORENA Emergency Contact [address] [facility] [place] [address] MELANIE CASTORENA Guarantor Unknown ALLERGIES Allergen [...] Back pain (M54.9) Active confirmed Back pain (942538591) Problem Asthma (J45.909) Active confirmed Asthm a (065196297) Problem GERD (gastroesophagea l reflux disease) (K21.9) Active confirmed Gastroesoph ageal reflux disease (026748315) Problem Endometriosis (N80.9) Active confirmed Endometriosis (985873021) Problem Rhinitis (J31.0) Active confirmed Rhini tis (92017804) Problem Crohns disease (K50.90) Active confirmed Crohns disease (55067664) Problem Lupus (M32.9) Active confirmed Lupus (2 55221229) PLAN OF TREATMENT No Information Insurance Providers Payer Name Payer Address Payer Phone Subscriber Number Group Number Insured Name Patient Relationship to Insured Coverage Start Date Coverage End Date [employer] [address] [place], [place] [id number] MELANIE CASTORENA Self - patient is the insured [facility]ALTH PLANS [facility] [address] [place] [address] [id number] MELANIE CASTORENA Self - patient is the [place] [address] MELANIE CASTORENA Self - patient is the insured MEDICAL (GENERAL) HISTORY Medical History History ICD Code CONTROLLED SUBSTANCE AGREEMENT SIGNED [facility] DR. CANSECO ON 12/14/2014- Crohns Disease Lupus Endometriosis Asthma (Mild) Surgical History Surgery Date(Month/Year) Back Surgery 03/20112011-08-07 & laproscopic surg for endometrosis x3 gallbladder removal colonoscopy 05/2008 & 2013 Hospitalization History Reason Date(Month/Year)
== END ==
PROVIDERS: PCP Nurse Practitioner Adult Health; Visit Provider Podiatrist
DX: S92.351D Displaced fracture of fifth metatarsal bone, right foot, subsequent encounter for fracture with routine healing (principal); M79.672 Pain in left foot; X58.XXXD Exposure to other specified factors, subsequent encounter
CPT/HCPCS: 73630

== ENCOUNTER 2023-08-15 13:50 | Outpatient (CLI) | payer OTHER, SELFPAY ==
--- NOTE | 2023-08-15 10:30 | DI.RAD_ITS ---
Exam(s) XR ANKLE RT COMPLETE EXAM: XR ANKLE RT COMPLETE CLINICAL HISTORY: RIGHT ANKLE PAIN. TECHNIQUE: 2D digital imaging was performed of the right ankle. Five images were obtained. AP, lat eral and oblique views were obtained. COMPARISON: CR XR ANKLE RT COMPLETE from 04/30/2023 CR XR FOOT LT COMPLETE from 06/25/2023 CR Tibia Fibula Right 2 Views from 08/13/2023 CR Ankle Right 3 Views or More from 08/13/2023 CR Foot Right Complete 3 Views from 08/13/2023 FINDINGS: BONES: There is no change in alignment of the distal right fibular fracture. There is a fracture see n through the base of the 5th metatarsal. No new fracture is seen. No bony destructive lesion is se en. JOINTS: There is widening of the medial ankle joint. SOFT TISSUE: There is soft tissue swelling around the foot and ankle. IMPRESSION: Stable distal fibular and 5th metatarsal fracture. DATA REPOSITORY: RADIATION DOSE DELIVERED:
--- OUTSIDE RECORDS SUMMARY | 2023-08-15 13:58 | XMS_ITS | Patient Health Record ---
Author Name Unknown [facility] Address [address] [place] [address] Support Name Relationship Address Phone TERESA CASTORENA Emergency Contact [address] [facility] [place] [address] MELANIE CASTORENA Guarantor Unknown ALLERGIES Allergen [...] Back pain (M54.9) Active confirmed Back pain (165769418) Problem Asthma (J45.909) Active confirmed Asthm a (588787383) Problem GERD (gastroesophagea l reflux disease) (K21.9) Active confirmed Gastroesoph ageal reflux disease (455341035) Problem Endometriosis (N80.9) Active confirmed Endometriosis (137862444) Problem Rhinitis (J31.0) Active confirmed Rhini tis (38614408) Problem Crohns disease (K50.90) Active confirmed Crohns disease (40579751) Problem Lupus (M32.9) Active confirmed Lupus (2 34355161) PLAN OF TREATMENT No Information Insurance Providers Payer Name Payer Address Payer Phone Subscriber Number Group Number Insured Name Patient Relationship to Insured Coverage Start Date Coverage End Date [employer] [address] [place], [place] [id number] MELANIE CASTORENA Self - patient is the insured HEALTH PLANS [facility] [address] [place] [address] [id number] MELANIE CASTORENA Self - patient is the [place] [address] MELANIE CASTORENA Self - patient is the insured MEDICAL (GENERAL) HISTORY Medical History History ICD Code CONTROLLED SUBSTANCE AGREEMENT SIGNED [facility] DR. CANSECO ON 12/14/2014- Crohns Disease Lupus Endometriosis Asthma (Mild) Surgical History Surgery Date(Month/Year) Back Surgery 03/20112011-08-07 & laproscopic surg for endometrosis x3 gallbladder removal colonoscopy 05/2008 & 2013 Hospitalization History Reason Date(Month/Year)
== END 2023-08-15 13:51 | disposition home or self-care (01) ==
LOC: DIORS 13:51
PROVIDERS: PCP Nurse Practitioner Adult Health; Visit Provider Physician Assistant
DX: S92.351A Displaced fracture of fifth metatarsal bone, right foot, initial encounter for closed fracture (principal); X58.XXXA Exposure to other specified factors, initial encounter
CPT/HCPCS: 73610

== ENCOUNTER 2023-08-16 09:46 | Day surgery (SDC) | payer OTHER, SELFPAY ==
[2023-08-16] VITALS (13 sets, daily range): BP systolic 90–127; BP diastolic 60–84; PULSE 59–81; RESP 12–20; TEMP 36.1–36.9; O2SAT 97–100
--- NOTE | 2023-08-16 | DI.RAD_ITS ---
Exam(s) XR ANKLE RT 2V EXAM: XR ANKLE RT 2V CLINICAL HISTORY: right ankle fracture. TECHNIQUE: 2D digital imaging was performed of the right ankle. One images were obtained. AP with gravity stress views were obtained. COMPARISON: CR XR ANKLE RT COMPLETE from 08/15/2023 FINDINGS: BONES: There is again seen an oblique fracture of the distal fibula. There is very mild lateral disp lacement of the distal fracture noted. There is again seen widening of the medial joint space. Ther e is also a minimally displaced fracture through the base of the 5th metatarsal. No bony destructive lesion is seen. JOINTS: Mild widening of the medial ankle joint space. SOFT TISSUE: Soft tissue swelling around the ankle. IMPRESSION: Stable distal fibular and 5th metatarsal fractures. Stable widening of the medial ankle joint space. DATA REPOSITORY: RADIATION DOSE DELIVERED:
--- NOTE | 2023-08-16 11:11 | W.PM.DSUDISC ---
Date of service: 08/16/23 Time of Service: 14:00 Discharge Plan Disposition Patient Disposition: Home Condition: Stable Discharge Details Attending Provider: Travis Spivey Primary Care Provider: Jana Tesfaye Home Meds and New Rx's Prescriptions: New oxycodone 5 mg tablet 5 - 10 mg PO .q4-6h PRN (Reason: severe pain) Qty: 18 0RF aspirin 81 mg capsule 81 mg PO BID 30 Days Qty: 42 0RF Rx Instructions: take 1 BID for 14 days and then 1 daily for an additional 14 days Continued hydroxychloroquine 200 mg tablet 200 mg PO BID levothyroxine [Synthroid] 175 mcg tablet 175 mcg PO DAILY liothyronine [Cytomel] 5 mcg tablet 5 mcg PO DAILY colestipol 1 gram tablet 1 g PO ONCE multivitamin Tablet 1 tab PO DAILY cholecalciferol (vitamin D3) 125 mcg (5,000 unit) capsule 125 mcg PO DAILY bupropion HCl 150 mg tablet extended release 24 hr 150 mg PO QAM celecoxib [Celebrex] 200 mg capsule 200 mg PO DAILY cyanocobalamin (vitamin B-12) 3,000 mcg/mL drops 3,000 mcg sublingual DAILY ferrous sulfate 325 mg (65 mg iron) tablet 325 mg PO DAILY omega 6-ctn-pce-fish oil [Fish Oil] 1,000 mg (120 mg-180 mg) capsule 1 cap PO DAILY Discharge Instructions Additional Instructions: Surgery: Right ankle & syndesmosis open reduction and internal fixation Activity: Non-weightbearing right ankle. Strict elevation to minimize swelling. Wiggle toes to improve circulation and prevent stiffness. Prescriptions: Aspirin 81 mg take 1 twice daily to prevent a blood clot for 14 days and 1 once daily for an additional 14 days (total 4 weeks) Oxycodone 5 mg take 1-2 every 4-6 hours as needed for severe pain Continue Celebrex 200 mg daily as needed for moderate pain You may use nwve-nwe-mqujkci Tylenol (acetaminophen) as needed for mild pain. These pain medications may be taken all at once or in different combinations as needed. Also, recommend Colace (docusate) as a stool softener as surgery and pain medicine cause constipation. You may try qvua-dqo-dokbxdu diphenhydramine (Benadryl) 25-50 mg nightly as a sleep aid Dressings: Leave splint and dressing in place until follow-up. Keep clean and dry at all times. Follow-up: 10-[address] Spivey You may take off the leg compression stockings this evening at home. You may also leave them on a few days longer if you have a history of leg swelling or edema. Let us know right away if you develop any redness, drainage, fevers, chest pain, or trouble breathing. Do not drink alcohol or drive for at least 24 hours after anesthesia. Please call the office during business hours with any questions or concerns. Discharge Orders Discharge Orders: Discharge Order (Routine); Ordered 08/16/23 Ordered By: Linda Arciniega DS: Diagnosis Discharge Diagnosis (1) Closed fracture of right distal fibula: Status: Acute
--- NOTE | 2023-08-16 11:15 | ROE_ITS ---
Date of service: 08/16/23 Time of Service: 12:00 Operative Note Operative Note DATE OF PROCEDURE: 08/16/23 PRE-OP DIAGNOSIS: Bimalleolar equivalent right ankle fracture POST-OP DIAGNOSIS: same PROCEDURE: 1. Right ankle ORIF, CPT #78784 2. Open treatment syndesmosis disruption, CPT #90001 SURGEON: Travis Spivey [employer]LECTRICIAN [employer]: Linda Arciniega ANESTHESIA TYPE: Local By Surgeon and General LMA/ETT Refer to Anesthesia Record TOURNIQUET TIME: 0 Patient was transported to: PACU Patient's condition: stable Indications: Please see complete medical record for details. Findings: Synthes 08/28 tubular plate 8-hole with 7 screws (3.5mm cortex & 4.0mm cancellous) Procedure Description: In the operating room, general anesthesia was induced. The patient was positioned supine on the operating room table. All bony prominences were well- padded. Preoperative antibiotics were administered. The right ankle was prepped and draped in the usual sterile fashion. The correct patient, procedure, and side of the procedure were all verified prior to incision. Manual stress external rotation x-ray was done confirming bimalleolar equivalent fracture pattern with unstable ankle joint as evidenced by medial clear space widening and lateral talar translation. The direct lateral approach to the distal fibula was preinjected with 0.25% bupivacaine containing epinephrine. The skin was opened, subcutaneous tissue swept to the sides, and the fibula fracture encountered. Anterior and distally the talar dome was readily visible as the injury must have stripped the anterior inferior tibiofibular ligament from the distal fibula past the fracture site and created an arthrotomy as well. The joint was irrigated of soft tissue, and there was no firm debrided to remove. Care was taken to protect soft tissues and tendons anterior and posterior the fracture. The fracture was exaggerated, irrigated of debris, and interposed soft tissue and removed. The fracture was then reduced with traction and internal rotation and bone clamps. The bone was surprisingly soft given the patient's age about the fracture site and bone cyst. The lateral aspect the fibula was exposed as needed for planned plating distally and proximally. A lag screw was attempted from anterior to posterior, but this screw had minimal fixation strength and was removed. Slightly more distally a posterior to anterior lag screw was predrilled, but again inadequate bone purchase was encountered. An appropriately length one third tubular plate was contoured to match patient anatomy and applied to the lateral fibula, secured with bone clamps around a reduced fracture. Immediately distal and then proximal to the fracture the plate was compressed to bone with bicortical cortex screws. More distally the fibula was drilled bicortically, but cancellous screws were placed taking care to ensure the tip of the screw was not near the talus. Proximally the second windows desktop support was predrilled without a problem, but the cortex screw did not have good purchase either so it was exchanged for a cancellous screw. The most proximal screw was angled to increase construct length and filled with bicortical cortex screw. Owing to the relatively soft bone and lack of the lag screw and additional central screw was drilled at about the level of the pre- existing cyst, cortex screw had no purchase, it was changed to a cancellous screw with some fixation strength. AP, mortise, and lateral x-rays were used to confirm appropriate hardware placement and fracture reduction. The ankle mortise was well reduced and stable on external rotation stress testing. The fracture site also remained stable through its course. The arthrotomy and syndesmosis injury was inspected. The medial tissue from the talus was song and able to be reapposed over the distal fibula anterior to the plate and screws so decision was made to proceed with repair to augment ankle stability and close the ankle joint. The 2.5 mm drill was used to place holes in the distal fibula at the level of the syndesmotic injury and suture tape was used passed through the bone tunnel and incorporating the AITFL and capsule for repair. Wound was copiously irrigated normal saline. Subcutaneous tissue closed in 2-0 Monocryl buried interrupted. Skin was closed in 3-0 nylon horizontal mattresses. Xeroform applied over the incision followed by gauze, ABD pads, and sterile soft roll. A plaster AO splint was then applied to the extremity maint aining the foot and ankle in neutral position. The patient awoke from anesthesia without complication and was transferred to the recovery room in a stable condition.
[2023-08-16] MEDS: Lactated Ringers 1,000 ML 30 ML IV (11:29)
[2023-08-16] MEDS: ceFAZolin 2 GM/50 ML BAG IVPB (12:04)
[2023-08-16] MEDS: EPINEPHrine 10 MG/10 ML ML (12:25)
[2023-08-16] MEDS: Bupivacaine 0.25% Pres-Free 30 ML VIAL (12:40)
--- NOTE | 2023-08-16 13:45 | DI.RAD_ITS ---
Exam(s) XR ANKLE RT 2V EXAM: XR ANKLE RT 2V CLINICAL HISTORY: Broken Right Ankle TECHNIQUE: 2D and realtime digital imaging was performed. CONTRAST MATERIAL: Refer to procedure report. COMPARISON: CR XR ANKLE RT 2V from 08/16/2023 FINDINGS: Fluoroscopy was provided for Dr. Spivey during the performance of a open reduction and internal fixa tion of the right fibular fracture. Please refer to the procedure report for complete details. Ka,r=0.43 mGy IMPRESSION: RADIATION DOSE DELIVERED:
[2023-08-16] MEDS: fentaNYL 100 MCG/2 ML VIAL IVP ×2 (14:35→14:42)
[2023-08-16] MEDS: LORazepam 2 MG/ML VIAL 0.5 MG IVP (15:16)
[2023-08-16] MEDS: HYDROmorphone 2 MG/ML SYR IVP (15:31)
[2023-08-16] MEDS: Normal Saline 10 ML VIAL IJ (15:34)
[2023-08-21 12:20] VITALS: BMI 30.1
--- NOTE | 2023-08-21 12:20 | W.ANESPRE ---
General Info Date of Service Date Performed: 08/16/23 Height: 5 ft 10 in Weight: 95.254 kg Body Mass Index (BMI): 30.1 Surgical Procedure: Operation Date: 08/16/23 11:25 Proposed Procedure Side Surgeon p Ankle ORIF Right Travis Spivey MD Actual Procedure Side Surgeon p Ankle ORIF Right Travis Spivey MD Pre-Op Diagnosis Post-Op Diagnosis Fracture Right Ankle Fracture Right Ankle Meds Allergies and Home Medications Allergies Allergy/AdvReac Type Severity Reaction Status Date / Time morphine Allergy Severe chest Verified 08/15/23 14:23 tightness ondansetron [From Zofran] Allergy Severe Anaphylaxis Verified 08/15/23 14:23 Penicillins Allergy Severe Itching Verified 08/15/23 14:23 Sulfa (Sulfonamide Allergy Unknown Verified 08/15/23 14:23 Antibiotics) ketorolac [From Toradol] AdvReac Severe abdominal Verified 08/15/23 14:23 pain IgA deficiency Allergy Anaphylaxis Uncoded 08/15/23 14:23 Home Medication Medication Instructions Recorded bupropion HCl 150 mg 24 hr tablet, 150 mg PO QAM 04/24/23 extended release celecoxib 200 mg capsule (Celebrex) 200 mg PO DAILY 04/24/23 cholecalciferol (vitamin D3) 125 125 mcg PO DAILY 04/24/23 mcg (5,000 unit) capsule colestipol 1 gram tablet 1 g PO ONCE 04/24/23 cyanocobalamin (vitamin B-12) 3,000 mcg sublingual DAILY 04/24/23 3,000 mcg/mL sublingual drops ferrous sulfate 325 mg (65 mg 325 mg PO DAILY 04/24/23 iron) tablet hydroxychloroquine 200 mg tablet 200 mg PO BID 04/24/23 levothyroxine 175 mcg tablet 175 mcg PO DAILY 04/24/23 (Synthroid) liothyronine 5 mcg tablet (Cytomel) 5 mcg PO DAILY 04/24/23 multivitamin 1 tab PO DAILY 04/24/23 omega 2-rmh-odl-fish oil 1,000 mg 1 cap PO DAILY 08/15/23 (120 mg-180 mg) capsule (Fish Oil) aspirin 81 mg capsule 81 mg PO BID prevent blood clot 30 08/16/23 days #42 caps oxycodone 5 mg tablet 5 - 10 mg (1 - 2 x 5 mg) PO .q4-6h 08/16/23 PRN severe pain #18 tabs PFSH Active Problems Active Problems: Problem Status Onset Code Closed fracture of right distal fibula 08/13/23 S82.831A Difficulty concentrating ~2022 R41.840 Pain in left foot M79.672 Lupus ~2007 M32.9 Acute Crohn's disease ~2007 K50.90 Pain in left ankle M25.572 Pain in right ankle M25.571 Sprain of tarsometatarsal joint of left foot S93.622A Fracture of fifth metatarsal bone of right foot ~01/2023 S92.351A Anemia, iron deficiency D50.9 Anxiety F41.9 Asthma J45.909 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 B12 deficiency anemia D51.9 Hypothyroidism E03.9 IgA deficiency D80.2 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 S92.351K Medical History Medical History Kristen's thyroiditis Endometriosis determined by laparoscopy Migraine Ocular migraine--avg annual Plantar fascia syndrome Diverticulitis Weeks Surgical History Surgical History H/O lumbosacral spine surgery Multiple--[id number] S/P fusion of sacroiliac joint (~2012) Hx of cholecystectomy (~2007) History of appendectomy H/O lumbar discectomy History of lumbar fusion Tobacco Smoking/Tobacco Use Status: Never Passive smoking exposure: No Second hand exposure: No Alcohol Alcohol Intake: never Details: maybe 1-2 times yearly Substance Use Substance use: Never Substance use type: does not use Vital Signs and Lab Results Vital Signs Most Recent Vital Signs in EMR: Most Recent Vital Signs Temp Pulse Resp BP Pulse Ox 36.6 C 81 18 111/67 98 08/16/23 16:34 08/16/23 16:34 08/16/23 16:34 08/16/23 16:34 08/16/23 16:34 Point of Care Results Point of Care Results: POC- Test(urine) Negative 08/16/23 11:27 Lab Results Blood Type / Crossmatch: No Data to Display Complete Blood Count: No Data to Display Complete Metabolic Panel: No Data to Display Liver Function Panel: No Data to Display Coagulation Panel: No Data to Display Cardiac Panel: No Data to Display Arterial Blood Gas: No Data to Display Venous Blood Gas: No Data to Display Pancreas Panel: No Data to Display Thyroid Panel: No Data to Display Infectious Disease: No Data to Display Blood Cultures: No Data to Display Toxicology Panel: No Data to Display Panel: No Data to Display Anesthesia Assessment and Plan Anesthesia History Personal History: No History of Anesthesia Complications Family History: No Family History of Anesthesia Complications Exercise Tolerance Exercise Tolerance: Metabolic Equivalents>4 Pertinent Negatives Pertinent Negatives: No Symptoms of GERD Cardiac & Pulmonary Exam Cardiac Exam: Normal S1/S2 Heart Sounds Pulmonary Exam: Clear Bilateral Breath Sounds Implantable Cardiac Device Does patient have a Pacemaker or an ICD?: No Airway Exam Known Difficult Airway: No Mallampati Class: 2 Mouth Opening: Normal (> 3cm) Thyromental Distance: Greater than 3 cm Neck Range of Motion: Full ROM Neck Circumference: Normal Teeth Condition: Normal Dentition ASA Classification ASA Score: ASA 2 Emergency Case?: No NPO Status NPO Status: NPO Clears >2 hours, Solids >8 hours Status Status: Negative HCG Anesthesia Plan Resuscitation Status: Full Code Anesthesia Technique: General Anesthesia Airway Planned: LMA Monitors Used: Standard Monitors
--- NOTE | 2023-08-21 12:21 | W.ANESPOSTOP ---
Postoperative Evaluation Date, Time and Location Date Performed: 08/21/23 Time Performed: 16:08 Patient Location: PACU Vital Signs Most Recent Imported Vital Signs: Most Recent Vital Signs Temp Pulse Resp BP Pulse Ox 36.6 C 81 18 111/67 98 08/16/23 16:34 08/16/23 16:34 08/16/23 16:34 08/16/23 16:34 08/16/23 16:34 Pain Score Most Recent Pain Score: Most Recent Pain Score Pain Level 3 08/16/23 16:34 Assessment Mental Status: Awake (Alert & Oriented to Patient Baseline) Airway and Respiratory Function: Patent airway with normal (patient baseline) respiratory exam Cardiovascular Function: Hemodynamically Stable Hydration Status: Adequately Hydrated Nausea & Vomiting: No Nausea or Vomiting Pain: Pt. Denies Any Pain Peripheral Nerve Block: Patient did not receive a nerve block
== END 2023-08-16 17:34 | disposition home or self-care (01) ==
PROVIDERS: PCP Nurse Practitioner Adult Health; Visit Provider Student in an Organized Health Care Education/Training Program
PROC: (CPT 27792; principal; 2023-08-16 11:15)
DX: S82.831A Other fracture of upper and lower end of right fibula, initial encounter for closed fracture (principal); X58.XXXA Exposure to other specified factors, initial encounter
CPT/HCPCS: 27792; 27829; 76000; 81025; 73600; J0690; J1100; J1170; J2001; J2060; J2250; J2405; J2704; J3010

== ENCOUNTER 2023-08-27 15:01 | Outpatient (CLI) | payer OTHER, SELFPAY ==
--- NOTE | 2023-08-27 11:45 | DI.RAD_ITS ---
Exam(s) XR ANKLE RT COMPLETE EXAM: XR ANKLE RT COMPLETE CLINICAL HISTORY: F/U ANKLE ORIF. TECHNIQUE: 2D digital imaging was performed. Three images were obtained. AP, lateral and oblique vi ews were obtained. COMPARISON: CR XR ANKLE RT COMPLETE from 08/15/2023 CR XR ANKLE RT 2V from 08/16/2023 XA XR ANKLE RT 2V from 08/16/2023 FINDINGS: BONES: There are stable post operative changes present. There is a sideplate and screws transfixing the distal fibular fracture. The fracture through the base of the 5th metatarsal bone is unchanged. No new fracture or dislocation. JOINTS: The joint spaces are well maintained. SOFT TISSUE: Soft tissue swelling is noted about the ankle. IMPRESSION: Stable postoperative changes. DATA REPOSITORY: RADIATION DOSE DELIVERED:
--- OUTSIDE RECORDS SUMMARY | 2023-08-27 15:19 | XMS_ITS | Patient Health Record ---
Author Name Unknown [facility] Address [address] [place] [address] Support Name Relationship Address Phone TERESA CASTORENA Emergency Contact [address] [facility] [place] [address] MELANIE CASTORENA Guarantor Unknown [phone] ALLERGIES Allergen (clinical drug ingredient) Drug/Non Drug [...] Vaccine Route Administration Date Status Comme nts Influenza HISTORY Unknown 05/21/2014 Administered given by [facility] Influenza HISTORY IM Intramuscular 05/15/2015 Administered given at [facility] -Influenza FLUZONE NONSTATE 3+yrs preser free IM Intramuscular 06/30/2013 Administered -Influenza FLUZONE NON STATE ID ages 18-64 ID Intradermal 05/23/2012 Administered Tdap adacel or Boostrix NONSTATE Adults IM Intramuscular 06/30/2013 Administered Tdap HISTORY Unknown 01/13/2019 Administered SOCIAL HISTORY Tobacco Use: Social History [...] Back pain (M54.9) Active confirmed Back pain (517970078) Problem Asthma (J45.909) Active confirmed Asthm a (502101894) Problem GERD (gastroesophagea l reflux disease) (K21.9) Active confirmed Gastroesoph ageal reflux disease (154013076) Problem Endometriosis (N80.9) Active confirmed Endometriosis (264684861) Problem Rhinitis (J31.0) Active confirmed Rhini tis (78009361) Problem Crohns disease (K50.90) Active confirmed Crohns disease (32970157) Problem Lupus (M32.9) Active confirmed Lupus (2 17019334) PLAN OF TREATMENT No Information Insurance Providers Payer Name Payer Address Payer Phone Subscriber Number Group Number Insured Name Patient Relationship to Insured Coverage Start Date Coverage End Date [employer] [address] [place], [place] [id number] MELANIE CASTORENA Self - patient is the insured [employer] [facility] [address] [place] [address] [id number] MELANIE CASTORENA Self - patient is the insured [place] [address] MELANIE CASTORENA Self - patient is the insured MEDICAL (GENERAL) HISTORY Medical History History ICD Code CONTROLLED SUBSTANCE AGREEMENT SIGNED [facility] DR. CANSECO ON 12/14/2014- Crohns Disease Lupus Endometriosis Asthma (Mild) Surgical History Surgery Date(Month/Year) Back Surgery 03/20112011-08-07 & laproscopic surg for endometrosis x3 gallbladder removal colonoscopy 05/2008 & 2013 Hospitalization History Reason Date(Month/Year)
== END 2023-08-27 15:02 | disposition home or self-care (01) ==
LOC: DIORS 15:13
PROVIDERS: PCP Nurse Practitioner Adult Health; Visit Provider Student in an Organized Health Care Education/Training Program
DX: S82.831D Other fracture of upper and lower end of right fibula, subsequent encounter for closed fracture with routine healing (principal); X58.XXXD Exposure to other specified factors, subsequent encounter; Z98.890 Other specified postprocedural states
CPT/HCPCS: 73610

== ENCOUNTER 2023-09-24 08:19 | Outpatient (CLI) | payer OTHER, SELFPAY ==
--- NOTE | 2023-09-24 09:12 | DI.RAD_ITS ---
Exam(s) XR ANKLE RT COMPLETE EXAM: XR ANKLE RT COMPLETE CLINICAL HISTORY: F/U FRACTURE. TECHNIQUE: 2D digital imaging was performed. COMPARISON: CR XR ANKLE RT COMPLETE from 08/27/2023 FINDINGS: 3 views Again noted is a fibular sideplate and screws transfixing the oblique fracture site in the distal fib gabino. Bony excrescence off the medial aspect of the distal fibula is again noted invaginating into th e lateral cortex of the adjacent tibia. Probable pseudoarticulation at this level. No hardware loos ening. No widening of the ankle mortise. Talar dome unremarkable. There are no degenerative change s in the tibiotalar joint and subtalar joint. Fracture at the base of the 5th metatarsal is again no chandu and without obvious callus formation. IMPRESSION: Stable appearance DATA REPOSITORY: RADIATION DOSE DELIVERED:
== END 2023-09-24 08:20 | disposition home or self-care (01) ==
LOC: DIORS 08:19
PROVIDERS: PCP Nurse Practitioner Family; Visit Provider Student in an Organized Health Care Education/Training Program
DX: S82.831D Other fracture of upper and lower end of right fibula, subsequent encounter for closed fracture with routine healing (principal); X58.XXXD Exposure to other specified factors, subsequent encounter; S92.351D Displaced fracture of fifth metatarsal bone, right foot, subsequent encounter for fracture with routine healing
CPT/HCPCS: 73610